=== PATIENT | female | born 1965 | race Caucasian/White ===

== ENCOUNTER 2017-08-05 17:11 | Emergency (ER) | payer OTHER, SELFPAY ==
[2017-08-05 17:22] VITALS: BP 141/78; PULSE 62; RESP 20; TEMP 36.7; O2SAT 99; BMI 28.1
--- NOTE | 2017-08-05 17:27 | DI.RAD.S_ITS ---
PROCEDURE: XR CHEST 1V INDICATIONS: chest pain TECHNIQUE: One view of the chest was acquired. COMPARISON: None. FINDINGS: Surgical changes and devices: None. Lungs and pleura: No pleural effusions or pneumothorax. Lungs are clear. Mediastinum: Mediastinal contours appear normal. Heart size is normal. Bones and chest wall: No suspicious bony lesions. Overlying soft tissues appear unremarkable. IMPRESSION: No acute disease. Dictated by: Israel Stewart M.D. on 08/05/2017 at 18:08 Approved by: Israel Stewart M.D. on 08/05/2017 at 18:09
[2017-08-05 17:54] VITALS: BP 134/68; PULSE 60; RESP 13; O2SAT 97
[2017-08-05 18:04] VITALS: BP 124/76; PULSE 58; RESP 17; O2SAT 98
--- NOTE | 2017-08-05 18:16 | ED_ITS ---
HPI - Chest Pain General Chief Complaint: Chest Pain Stated Complaint: HEART ISSUES,CHEST PAIN Time Seen by Provider: 08/05/17 18:16 Source: patient Mode of arrival: ambulatory Limitations: no limitations History of Present Illness HPI narrative: The patient arrives with intermittent left-sided chest pain that started this morning. She is having moments of pain that lasts seconds only. The pain is focused in the left anterior lateral chest. The pain does not radiate. Pain seems to be exacerbated somewhat with breathing motion.She has no associated cough or dyspnea. She denies hemoptysis. She has had no fever or cough. She does have 2 weeks of right lateral leg pain. She has no lower extremity edema. She did just finish a [address] She has no history of PE or DVT. She has A history of paroxysmal atrial fib. She has not experienced palpitations. Related Data Allergies Allergy/AdvReac Type Severity Reaction Status Date / Time No Known Drug Allergies Allergy Verified 08/05/17 17:32 Review of Systems Review of Systems All systems reviewed & are unremarkable except as noted in HPI and below Constitutional Denies chills, Denies fever(s), Denies headache(s), Denies lethargy and Denies weakness Eyes Denies change in vision and Denies loss of vision ENT Ears, Nose, Mouth, and Throat: Denies headache(s), Denies neck pain and Denies sore throat Cardiovascular Reports as per HPI, Denies edema, Denies irregular heart rhythm, Denies claudication, Denies leg edema, Denies lightheadedness, Denies radiating jaw, neck or arm pain, Denies dyspnea and Denies dyspnea on exertion Respiratory Denies cough, Denies dyspnea, Denies dyspnea on exertion and Denies wheezing Gastrointestinal Gastrointestinal: Denies abdominal pain, Denies change in bowel habits, Denies diarrhea, Denies nausea and Denies vomiting Musculoskeletal Denies neck pain Integumentary/Breasts Denies pruritus, Denies erythema, Denies rash and Denies wounds Neurologic Denies headache(s), Denies loss of vision and Denies weakness Allergic/Immunologic Denies wheezing [facility] Social History Smoking Status: Never smoker Exam Initial Vital Signs Initial Vital Signs: Vital Signs Temperature 98.0 F 08/05/17 17:22 Pulse Rate 62 08/05/17 17:22 Respiratory Rate 20 08/05/17 17:22 Blood Pressure 141/78 H 08/05/17 17:22 Pulse Oximetry 99 08/05/17 17:22 Const General: cooperative and well developed Nutritional Appearance: well nourished Orientation: alert, awake, oriented x3 and not confused Eyes General: appearance normal, both eyes and all related structures Eyelids: eyelids normal Conjunctivae: conjunctivae normal Sclera: sclerae normal Pupils: PERRL EOM: EOM intact bilaterally Neck Neck: normal visual inspection, trachea midline, No lymphadenopathy, No midline deformity and No JVD Lymphatic: No lymphedema Chest Chest: normal inspection of the chest Resp Effort & Inspection: normal respiratory effort, able to speak in complete sentences, no respiratory distress and no use of accessory muscles Auscultation: clear to auscultation bilaterally, no rales, no rhonchi and no wheezes Cardio Rate: regular rate Rhythm: regular rhythm Heart Sounds: no click, no gallops, no murmurs and no rubs Pulses: normal peripheral pulses GI Inspection: non-distended Palpation: soft, no hepatosplenomegaly, No guarding, No pulsatile mass and No tender Auscultation: normal bowel sounds Back/Spine/Pelvis Back: No CVA tenderness Cervical Spine: cervical ROM normal and No pain with cervical ROM Thoracic/Lumbar Spine: thoracic and lumbar spine normal to inspection Skin General: no rashes or lesions noted, No jaundice and No petechiae Neuro General: alert, oriented x3, gait normal and no focal motor deficits Speech: speech normal Extrem General: full ROM, no clubbing, cyanosis or edema, no pedal edema and other ( Tenderness in the right lateral calf. Negative Homans sign.) Course Hospital Course: The patient has experience several additional episodes left lateral chest pain , the pain is sharp and lasts only 2-3 seconds. She has not experienced palpitations or dyspnea. Orders Ordered: ED Orders 08/05/17 17:27 XR chest 1V Stat EKG-12 Lead Stat 08/05/17 18:20 Complete Blood Count AUTO DIFF Stat Comprehensive Metabolic Panel Stat D Dimer Stat Lipase Stat Troponin with CK Cardiac Panel Stat Sodium Chloride (Normal Saline 0.9%) 1,000 mls @ 150 mls/hr IV CONT MARCELO Last Admin: 08/05/17 18:30 Dose: 150 mls/hr Discontinued Medications Aspirin (Aspirin Chew) 324 mg PO NOW ONE Stop: 08/05/17 17:28 Last Admin: 08/05/17 18:30 Dose: 324 mg Vital Signs - 8 hr 08/05/17 17:22 08/05/17 17:54 08/05/17 18:04 Temperature 98.0 F Pulse Rate 62 60 58 L Respiratory Rate 20 13 17 Blood Pressure 141/78 H Blood Pressure [Left Arm] 134/68 H 124/76 H Pulse Oximetry 99 97 98 08/05/17 19:03 Temperature Pulse Rate 55 L Respiratory Rate 12 Blood Pressure Blood Pressure [Left Arm] 145/94 H Pulse Oximetry 100 MDM - Chest Pain Lab Data Result diagrams: 08/05/17 18:20 08/05/17 18:20 Lab Results 08/05/17 08/05/17 08/05/17 Range/Units 18:20 18:20 18:20 WBC 8.8 (4.5-11.0) X10^3/uL RBC 4.34 (4.0-5.2) X10^6/uL Hgb 12.0 (12.0-16.0) g/dL Hct 36.7 (36-46) % MCV 84.6 (80-100) fL MCH 27.6 (26-34) PG MCHC 32.7 (30-36) % RDW 15.5 H (11.6-14.8) % Plt Count 227 (150-400) X10^3/uL Neut % (Auto) 60.1 (50-75) % Lymph % (Auto) 23.8 L (25-40) % [place] % (Auto) 7.2 (3-14) % Eos % (Auto) 7.7 H (2-4) % Baso % (Auto) 1.2 (0-2) % Neut # (Auto) 5300 (5448-4423) /uL D-Dimer < 200 (<230) ng/mL Sodium 140 (137-145) mmol/L Potassium 4.1 (3.4-5.1) mmol/L Chloride 104 (98-107) mmol/L Carbon Dioxide 26 (22-32) mmol/L BUN 13 (7-17) mg/dL Creatinine 0.60 (0.52-1.04) mg/dL Estimated GFR > 60.0 (>60) mL/min BUN/Creatinine Ratio 21.7 (6-22) Glucose 90 (70-100) mg/dL Calcium 8.5 (8.4-10.2) mg/dL Total Bilirubin 0.3 (0.2-1.3) mg/dL AST 19 (14-36) IU/L ALT 27 (9-52) IU/L Alkaline Phosphatase 89 (38-126) U/L Total Creatine Kinase 69 (30-135) U/L Troponin I < 0.012 (0.01-0.034) ng/mL Total Protein 6.9 (6.3-8.2) g/dL Albumin 3.9 (3.5-5.0) g/dL Globulin 3.0 (1.7-4.1) g/dL Albumin/Globulin Ratio 1.3 (1.0-2.8) Lipase 61 (23-300) U/L Imaging Data Chest x-ray: Radiologist's impression: Normal ECG Data Attestation: I personally reviewed and interpreted this ECG as follows: ( sinus bradycardia rate [address] T wave changes, no acute ST T wave elevation. Intervals are normal. No ectopy. air sampling and monitoring did not reveal ectopy either.) Discharge Plan Departure Patient Disposition: Home, Self-Care Clinical Impression: Chest pain Instructions: DI for Chest Pain Activity Restrictions/Additional Instructions: Advil 3 tablets every 6 hr as needed to control the current pain you're experiencing. Return here for sustained chest pain , weakness or difficulty breathing.
[2017-08-05] MEDS: SODIUM CHLORIDE 0.9% 1,000 ML 150 ML IV (18:30)
[2017-08-05] MEDS: ASPIRIN 81 MG TAB 324 MG PO (18:30)
[2017-08-05 18:38] LABS: Add Manual Diff / Slide Review NO; Basophils Percent Auto 1.2 % (0-2); Eosinophils Percent Auto 7.7 % (2-4); Hematocrit 36.7 % (36-46); Lymphocytes Percent Auto 23.8 % (25-40); Mean Corpuscular HGB Conc 32.7 % (30-36); Mean Corpuscular Hemoglobin 27.6 PG (26-34); Mean Corpuscular Volume 84.6 fL (80-100); Monocytes Percent Auto 7.2 % (3-14); Neutrophils Absolute Auto 5300 /uL (3000-5900); Neutrophils Percent Auto 60.1 % (50-75); Platelet Count 227 X10^3/uL (150-400); Red Blood Cell Count 4.34 X10^6/uL (4.0-5.2); Red Cell Distribution Width 15.5 % (11.6-14.8); White Blood Cell Count 8.8 X10^3/uL (4.5-11.0)
[2017-08-05 18:52] LABS: Alanine Aminotransferase 27 IU/L (9-52); Albumin 3.9 g/dL (3.5-5.0); Albumin Globulin Ratio 1.3 (1.0-2.8); Alkaline Phosphatase 89 U/L (38-126); Aspartate Aminotransferase 19 IU/L (14-36); BUN Creatinine Ratio 21.7 (6-22); Bilirubin Total 0.3 mg/dL (0.2-1.3); Blood Urea Nitrogen 13 mg/dL (7-17); Calcium 8.5 mg/dL (8.4-10.2); Carbon Dioxide 26 mmol/L (22-32); Chloride 104 mmol/L (98-107); Creatine Kinase 69 U/L (30-135); Estimated Glomerular Filt Rate > 60.0 mL/min (>60); Glucose 90 mg/dL (70-100); HEMOLYSIS 26 (0-50); Lipase 61 U/L (23-300); Potassium 4.1 mmol/L (3.4-5.1); Sodium 140 mmol/L (137-145); Total Protein 6.9 g/dL (6.3-8.2)
[2017-08-05 18:54] LABS: D Dimer < 200 ng/mL (<230)
[2017-08-05 19:03] VITALS: BP 145/94; PULSE 55; RESP 12; O2SAT 100
[2017-08-05 19:11] LABS: Troponin I < 0.012 ng/mL (0.01-0.034)
[2017-08-05 19:30] VITALS: BP 139/89; PULSE 59; RESP 17
[2017-08-05 19:52] VITALS: BP 139/89; PULSE 59; RESP 18; O2SAT 100
--- NOTE | 2017-09-16 13:32 | PC.NURSE ---
late entry for Rebekah Antunez RN. IV fluid of NS stopped at 1945 on 08/05/2017 with 1000ml infused.
== END 2017-08-05 19:53 | disposition home or self-care (01) ==
PROVIDERS: Emergency Medicine; Emergency Provider Emergency Medicine
DX: R07.9 Chest pain, unspecified (principal)
CPT/HCPCS: 36591; 71045; 80053; 82550; 82553; 83690; 84484; 85025; 85379; 93005; 96360; 96361; 99283; 99285